=== PATIENT | female | born 1965 | race Caucasian/White ===

== ENCOUNTER → 2023-08-14 18:03 | Outpatient (REF) | payer OTHER, SELFPAY | LOC: PAVMRI 18:03 | PROVIDERS: ATTENDING PHYSICIAN Physician Assistant Surgical; FAMILY PHYSICIAN Internal Medicine; REFERRING PHYSICIAN Internal Medicine | DX: M54.50 Low back pain, unspecified (principal); M54.16 Radiculopathy, lumbar region; M51.36 Other intervertebral disc degeneration, lumbar region | CPT/HCPCS: 72148 ==

== ENCOUNTER 2024-01-18 06:25 | Inpatient (IN) | payer OTHER, SELFPAY ==
[2024-01-18] VITALS (12 sets, daily range): BP systolic 104–165; BP diastolic 67–92; BMI 21.7
[2024-01-18 04:07] LABS: % Basophils 0.4 % (0-2); % Eosinophils 0.9 % (0-6); % Immature Granulocytes 0.2 % (0-0.5); % Lymphocytes 28.7 % (20.5-51.1); % Monocytes 7.5 % (1.7-9.3); % Neutrophils 62.3 % (42.2-75.2); Absolute Eosinophils 0.1 10^3/uL (0-0.7); Absolute Lymphocytes 2.4 10^3/uL (1.2-3.4); Absolute Monocytes 0.6 10^3/uL (0.1-0.6); Absolute Neutrophils 5.3 10^3/uL (1.4-6.5); Hematocrit 35.4 % (37.0-47.0); Hemoglobin 12.7 g/dL (12.0-16.0); Mean Corp Hgb Conc. 35.9 g/dL (33.0-37.0); Mean Corpuscular Hgb 31.1 pg (27.0-31.0); Mean Corpuscular Volume 86.8 fL (81.0-99.0); Mean Platelet Volume 8.1 fL (7.4-10.4); Nucleated Red Blood Cells % 0 %; Platelet Count 240 10^3/uL (130-400); Red Blood Cell Count 4.08 10^6/uL (4.20-5.40); Red Cell Dist. Width 12.3 % (11.5-14.5); White Blood Cell Count 8.5 10^3/uL (4.8-10.8)
--- NOTE | 2024-01-18 04:15 | ED.GENMED ---
History of Present Illness
<ALEE Horton - Last Filed: 01/18/24 06:11>
General
Chief Complaint: Abdominal Pain
Source: patient
Exam Limitations: none
Time Seen by Provider: 01/18/24 04:15
Nursing documentation reviewed up to this point in time: agreed with
History of Present Illness
History of Present Illness:
58 year old female presents for evaluation of lower abdominal/suprapubic pain. She states the pain began at approximately 23:00 while lying in bed. Pt placed a heating pad on her lower abdomen for approximately two hours with no symptom relief. She
also noticed a bulge in her right groin during this time with associated sensation of pressure per pt. She has not attempted to reduce it. Sitting upright and standing worsen the pain/pressure. Pt has not taken any medications for her sx. She has a
history of congenital hernias, but has not experienced a hernia since. Pt denies experiencing similar sx in the past. Pt denies N/V, fever, chills, fatigue, diarrhea, constipation, dysuria, hematuria, CP, and SOB. She denies ETOH, tobacco, and
illicit drug use.
Past History
<ALEE Horton - Last Filed: 01/18/24 06:11>
Past History
ED Past Medical History: Asthma and Other (Occasional migraines)
ED Past Surgical History: Orthopedic (2009 anterior cervical laminectomy) and Tonsilectomy
Social History
Tobacco: Non-smoker
Alcohol: None
Drug: None
Personal:
Living: with family
Employment: Employed
Family History
Family History: Other (Noncontributory)
Review of Systems
<ALEE Horton - Last Filed: 01/18/24 06:11>
Review of Systems
Allergies reviewed?: Yes
Constitutional: Reports no symptoms
EENT: Reports no symptoms
Respiratory: Reports no symptoms
Cardiac: Reports no symptoms
ABD/GI: Reports abdominal pain (lower abdominal/suprapubic pain )
: Reports other (Right groin pain/pressure worsened by sitting upright and standing )
Musculoskeletal: Reports no symptoms
Skin: Reports no symptoms
Neurological: Reports no symptoms
Endocrine: Reports no symptoms
Hematologic/Lymphatic: Reports no symptoms
Psychiatric: Reports no symptoms
Phy Exam
<ALEE Horton - Last Filed: 01/18/24 06:11>
General Physical Exam
General Presentation: well appearing
General age: appears stated age
General Skin: warm
General Habitus: normal
General Mental: alert
General Hydration: appears well hydrated
Cardiovascular Exam
Cardiovascular Exam: regular rate/rhythm
Pulmonary Exam
Pulmonary Exam: lungs clear and no respiratory distress
Gastrointestinal Exam
Gastrointestinal Exam: normal bowel sounds, no pulsatile mass, non distended and other (right-sided irreducible inguinal hernia )
Neurological Exam
Neurological Exam: alert and oriented x3
Course
<ALEE Horton - Last Filed: 01/18/24 06:11>
Orders/Labs/Results
Orders:
Orders
01/18/24 03:37
IV Insert/Care/Rem.- Treatment PRN
Urinalysis Reflex To Culture Urgent
Date Specimen was Collected: 01/18/24
Time Specimen was Collected: 03:38
01/18/24 03:58
Complete Blood Count/With Diff Urgent
Comprehensive Metabolic Panel Urgent
Lactate Level [Lactic Acid] Urgent
Comment: .
Lipase Urgent
01/18/24 04:15
Iohexol [Omnipaque] See Protocol PO NOW STA
01/18/24 04:48
CT Abd/pelvis W Iv Cont Urgent
Comment:
Reason For Exam: rlowe inguinal pain, lower bad pain
01/18/24 04:54
HYDROmorphone [Dilaudid] 0.5 mg IV NOW STA
Ondansetron Injectable [Zofran] 4 mg IV NOW STA
Abnormal Lab Results
01/18/24
03:58
RBC 4.08 L 10^6/uL
(4.20-5.40)
Hct 35.4 L %
(37.0-47.0)
MCH 31.1 H pg
(27.0-31.0)
BUN 22 H mg/dl
(7-17)
Glucose 120 H mg/dl
(70-99)
01/18/24 03:58
01/18/24 03:58
Vital Signs
Initial and Last Documented VS:
Initial Vital Signs
Temp Pulse Resp BP Pulse Ox
97.9 F 93 20 128/86 98
01/18/24 03:21 01/18/24 03:21 01/18/24 03:21 01/18/24 03:21 01/18/24 03:21
Last Documented Vital Signs
Temp Pulse Resp BP Pulse Ox
97.9 F 83 15 158/83 97
01/18/24 03:21 01/18/24 05:30 01/18/24 05:30 01/18/24 05:11 01/18/24 05:36
<Theodore Child DO - Last Filed: 01/18/24 05:59>
Orders/Labs/Results
Orders:
Orders
01/18/24 03:37
IV Insert/Care/Rem.- Treatment PRN
Urinalysis Reflex To Culture Urgent
Date Specimen was Collected: 01/18/24
Time Specimen was Collected: 03:38
01/18/24 03:58
Complete Blood Count/With Diff Urgent
Comprehensive Metabolic Panel Urgent
Lactate Level [Lactic Acid] Urgent
Comment: .
Lipase Urgent
01/18/24 04:15
Iohexol [Omnipaque] See Protocol PO NOW STA
01/18/24 04:48
CT Abd/pelvis W Iv Cont Urgent
Comment:
Reason For Exam: rlowe inguinal pain, lower bad pain
01/18/24 04:54
HYDROmorphone [Dilaudid] 0.5 mg IV NOW STA
Ondansetron Injectable [Zofran] 4 mg IV NOW STA
Abnormal Lab Results
01/18/24
03:58
RBC 4.08 L 10^6/uL
(4.20-5.40)
Hct 35.4 L %
(37.0-47.0)
MCH 31.1 H pg
(27.0-31.0)
BUN 22 H mg/dl
(7-17)
Glucose 120 H mg/dl
(70-99)
01/18/24 03:58
01/18/24 03:58
Vital Signs
Initial and Last Documented VS:
Initial Vital Signs
Temp Pulse Resp BP Pulse Ox
97.9 F 93 20 128/86 98
01/18/24 03:21 01/18/24 03:21 01/18/24 03:21 01/18/24 03:21 01/18/24 03:21
Last Documented Vital Signs
Temp Pulse Resp BP Pulse Ox
97.9 F 83 15 158/83 97
01/18/24 03:21 01/18/24 05:30 01/18/24 05:30 01/18/24 05:11 01/18/24 05:36
Abenalt;ALEE Horton - Last Filed: 01/18/24 06:11>
MDM/Problems Addressed
Differential Diagnosis Includes:
incarcerated right inguinal hernia, abdominal pain, UTI
<Theodore Child DO - Last Filed: 01/18/24 05:59>
MDM/Problems Addressed
Differential Diagnosis Includes:
incarcerated right inguinal hernia , abdominal pain
<ALEE Horton - Last Filed: 01/18/24 06:11>
*Critical Care Note
Total Time (30-74mins, 75-104mins- exclusive of procedures): Not Applicable
<Theodore Child DO - Last Filed: 01/18/24 05:59>
*Radiology
Radiology exam reviewed: radiology read reviewed
<Theodore Child DO - Last Filed: 01/18/24 05:59>
Patient Management
Social determinants of health affecting care: Strong social support
<Theodore Child DO - Last Filed: 01/18/24 05:59>
Update Note
Update Note:
CT abdomen and pelvis with IV contrast
IMPRESSION:
A portion of inflamed cecum versus deformed appendix extends into the right inguinal canal suspicious for obstruction, with surrounding free fluid and inflammation, series 201, image 69. This could reflect incarceration/strangulation. Correlate
clinically for disability and recommend surgical consultation.
No free air. Liver is enlarged. No cholecystitis, pancreatitis, or obstructing renal stone. Spleen and adrenal glands are normal. Abdominal aorta is of normal caliber.
ED Attending Note
<ALEE Horton - Last Filed: 01/18/24 06:11>
-
Portions of this chart may have been created with voice recognition software.� Occasional wrong word or��sound alike� substitutions may have occurred due to the inherent limitations of voice recognition software.
<Theodore Child DO - Last Filed: 01/18/24 05:59>
ED Attending Note
Patient seen and examined by attending physician: Yes
I performed the substantive portion of visit, reviewed & personally made and approve the management plan that is documented in note by myself or ESA.: Yes
ED Attending Note:
Pleasant 58-year-old female who presents with generalized lower abdominal pain. She states that around 11 PM, after going to bed, she felt a bulge in her right inguinal region. As a child she had bilateral hernias Patient states that the bulge
was painful to the touch and she could not get it to go down. Patient states that she has had normal bowel movements. Denied fever or chills. Patient was seen in conjunction with the PA student. I have reviewed and agree with the history and
treatment plan presented. On my independent physical exam, patient is awake, alert, and oriented x3 moderate acute distress. Heart is regular rate and rhythm. Lungs are clear to auscultation bilaterally without wheezes rales or rhonchi. Abdomen
is soft. In the inguinal region there is a bulge, consistent with a right inguinal hernia. Several attempts to reduce this were unsuccessful.
01/18/2024 0548 AM 'discussed CT scan findings with Dr. Vergara via [place] text.
Discharge Plan
Departure
Patient Disposition: Admit
Date of Disposition: 01/18/24
Time of Disposition: 05:57
Admit to: Telemetry
Presentation/result/management discussed w/ accepting MD/DO: Hospitalist
Condition: Good
Discharge Problem:
Incarcerated hernia, Abdominal pain
Prescriptions:
No Action
Adderall
1 tab PO BID
Proventil
2 inh inhalation Q4H PRN (Reason: SOB)
Singulair
10 mg PO DAILY
Wellbutrin XL
1 tab PO DAILY
Rx Instructions:
unsure of dose
Zoloft
150 mg PO DAILY
albuterol
1 dose inhalation Q4H PRN (Reason: sob)
Rx Instructions:
unsure of dose
Referrals:
Dangelo Martinez MD [Family Provider] -
Interventions
Interventions:
*Risk Screen - Suicide Last Done: 01/18/24 03:21
*General Assessment Last Done: 01/18/24 03:21
*Neglect/Abuse Screening Last Done: 01/18/24 03:21
ED- Fall Risk Assessment Last Done: 01/18/24 03:21
*ED COVID-19 Vaccine History Last Done: 01/18/24 03:21
JQ-Ynkjjt-Ixqsuzsckv Assessment Last Done: 01/18/24 05:34
Discharge Date and Time
Print Language: PARAGUAYAN
[2024-01-18 04:32] LABS: Lactic Acid 1.2 mmol/L (0.7-2.0)
[2024-01-18 04:34] LABS: ALT (SGPT) 20 U/L (0-35); AST (SGOT) 25 U/L (14-36); Albumin 4.3 g/dl (3.5-5.0); Alkaline Phosphatase 77 U/L (38-126); Blood Urea Nitrogen 22 mg/dl (7-17); Calcium 9.8 mg/dl (8.4-10.2); Carbon Dioxide 23 mmol/L (22-30); Chloride 105 mmol/L (98-107); Estimated Creatinine Clearance 53 ml/min; Glucose 120 mg/dl (70-99); Lipase 248 U/L (23-300); Potassium 3.7 mmol/L (3.5-5.1); Sodium 138 mmol/L (135-145); Total Bilirubin 0.7 mg/dl (0.2-1.3); Total Protein 6.6 g/dl (6.3-8.2); eGFR > 60.00
[2024-01-18] MEDS: ZOFRAN 4 MG IV (05:08)
[2024-01-18] MEDS: DILAUDID 0.5 MG IV ×3 (05:08→22:12)
--- NOTE | 2024-01-18 06:11 | HPS.HSE ---
Family Physician
-
Family Physician: Dangelo Martinez
Chief Complaint
-
Abd Pain
History of Present Illness
Patient is a 58y F with PMH significant for anxiety / depression who presents to ED complaining of abdominal pain. Patient states that she started with crampy abdominal pain around 11 PM this evening. She applied a hating pad; however, her pain
persisted and progressed over the next 2 hours. Patient attempted to urinate in hopes to alleviate her discomfort and at this point she noted a visible bulge in the R inguinal area. This was tender to the touch. Patient denies any prior history
of similar symptoms. She has no nausea/vomiting, fevers / chills, etc.
Patient had bilateral inguinal herniorrhaphy in infancy.
Medical History
Past Medical History
Past Medical History: Reports Other
Additional Past Medical History:
Anxiety / Depression
ADHD
Exercise Induced Asthma
RLS
Past Surgical History: Reports Other
Additional Past Surgical History:
Cervical Discectomy / Fusion
Eye Surgery
Left Carpal Tunnel Release
Bilateral Inguinal Herniorrhaphies (infancy)
T&A
Social History
Tobacco: Non-smoker
Alcohol: None
Drug: None
Family History
Family History: Adopted
Allergies / Home Medications
Allergies reflects when Allergies were last updated in [facility].
Home Medications with original date entered in [facility]
Allergy/Medication List:
Allergies
Allergy/AdvReac Type Severity Reaction Status Date / Time
penicillin V [Penicillin V] Allergy Unknown Verified 01/18/24 03:21
Sulfa (Sulfonamide Allergy Unknown Verified 01/18/24 03:21
Antibiotics)
[Sulfa (Sulfonamides)]
steroids Allergy cushings, Uncoded 01/18/24 03:21
throat
swelling
Home Medications
Adderall 1 tab PO BID 01/18/24
Proventil 2 inh inhalation Q4H PRN SOB 01/18/24
Singulair 10 mg PO DAILY 01/18/24
Wellbutrin XL 1 tab PO DAILY 01/18/24
Zoloft 150 mg PO DAILY 01/18/24
albuterol 1 dose inhalation Q4H PRN sob 01/18/24
Review of Systems
-
History Source: Patient
A 12 point ROS was completed and negative except as noted: Yes
Constitutional: Denies Fever or Chills
Respiratory: Denies Cough or Trouble Breathing
Cardiac: Denies Chest Pain or Palpitations
Abdomen/GI: Reports Abdominal Pain; Denies Nausea, Vomiting, Diarrhea, Constipated, Bloody Stools or Black Stools
: Denies Dysuria, Frequency or Flank Pain
Neurological: Denies Dizzy or Headache
Physical Exam
Vital Signs
Vital Signs
Temp Pulse Resp BP Pulse Ox
97.9 F 83 15 158/83 97
01/18/24 03:21 01/18/24 05:30 01/18/24 05:30 01/18/24 05:11 01/18/24 05:36
Physical Exam
General: Other (58y F in mild distress due to pain.)
HEENT: Moist mucous membranes and PERRLA
Respiratory: Clear; No Wheezes, Rales or Rhonchi
Cardiac: S1/S2 and Regular Rhythm; No Murmur
GI: Soft, Non Distended, Normal Bowel Sounds and Other (Visible prominence in R inguinal area. Pos tender. Unable to easily reduce.)
Musculoskeletal: No Clubbing, No Cyanosis and No Edema
Neuro: AO x 3
Laboratory Results
-
01/18/24 03:58
01/18/24 03:58
Laboratory Results
Lactic Acid Cancelled 01/18/24 09:00
Total Bilirubin 0.7 mg/dl (0.2-1.3) 01/18/24 03:58
AST 25 U/L (14-36) 01/18/24 03:58
ALT 20 U/L (0-35) 01/18/24 03:58
Alkaline Phosphatase 77 U/L (38-126) 01/18/24 03:58
Lipase 248 U/L (23-300) 01/18/24 03:58
Impression/Plan
-
A/P: Patient is a 58y F with PMH significant for anxiety / depression who presents to ED complaining of abdominal pain that started suddently this evening.
Right Inguinal Hernia +/- Incarceration
- Admit for further evaluation and treatment.
- Patient is fairly well-appearing, normal WBC, normal lactate levels.
- Supportive care including pain control, IVFs, etc.
- Surgery evaluation for reduction / possible intervention.
- NPO for now / hold PO meds.
- Follow for any new / worsening symptoms.
Anxiety / Depression
- Hold usual meds for now.
- Resume when able to take POs.
Exercise Induced Asthma
- No current wheezing / exacerbation.
- Albuterol PRN.
DVT Prophylaxis: SCDs
Code Status: Full
[2024-01-18 06:48] LABS: Urine Albumin Negative (Neg - Trace); Urine Bilirubin Negative (Negative); Urine Character Clear (Clear); Urine Color Yellow; Urine Glucose Negative (Negative); Urine Ketone Negative (Negative); Urine Leukocyte Negative (Negative); Urine Nitrite Negative (Negative); Urine Occult Blood Negative (Negative); Urine Specific Gravity 1.015 (<1.030); Urine Urobilinogen Negative (Neg - 1+)
--- NOTE | 2024-01-18 07:08 | CON.GS ---
Addendum entered and electronically signed by Ascencion Vergara MD 01/18/24 07:18:

Patient with PCN allergy, plan for Levo and Flagyl
Original Note:
Medical History
-
Chief Complaint: RIGHT groin pain
History of Present Illness:
Patient is a 58 yo F with a PMH of depression/anxiety, asthma, and s/p bilateral open inguinal herniorrhaphy as an who presents to the ER with less than 24 hours of crampy lower abdominal pain as well as a firm hard RIGHT groin bulge.
Jase states that yesterday evening she developed some crampy lower abdominal pain. Upon further evaluation of the area she identified a firm lump in her groin. Continued pain and discomfort prompted presentation to the ED. She denies any nausea
or vomiting. She does continue to pass flatus and move her bowels. No fevers or chills. She has no prior knowledge of an inguinal hernia.
Past Medical History
Past Medical History: Asthma and Psychiatric (Depression/anxiety)
Past Surgical History: Hernia Repair (Bl inguinal herniorrhaphy as a child)
Social History
Tobacco: Non-Smoker
Alcohol: None
Drug: None
Personal: Partner
Living: With Family
Family History
Family History: Reviewed & Not Pertinent
Allergies / Home Medications
Allergy/AdvReac Type Severity Reaction Status Date / Time
penicillin V [Penicillin V] Allergy Unknown Verified 01/18/24 03:21
Sulfa (Sulfonamide Allergy Unknown Verified 01/18/24 03:21
Antibiotics)
[Sulfa (Sulfonamides)]
steroids Allergy cushings, Uncoded 01/18/24 03:21
throat
swelling
�Medication �Instructions �Recorded �Confirmed �Type
Adderall 1 tab PO BID 01/18/24 01/18/24 History
Proventil 2 inh inhalation Q4H PRN SOB 01/18/24 01/18/24 History
Singulair 10 mg PO DAILY 01/18/24 01/18/24 History
Wellbutrin XL 1 tab PO DAILY 01/18/24 01/18/24 History
Zoloft 150 mg PO DAILY 01/18/24 01/18/24 History
albuterol 1 dose inhalation Q4H PRN sob 01/18/24 01/18/24 History
Review of Systems
-
A 10 point review of systems was completed, and was negative except as per HPI.
Physical Exam
Vital Signs
Temp Pulse Resp BP Pulse Ox
97.9 F 83 15 158/83 97
01/18/24 03:21 01/18/24 05:30 01/18/24 05:30 01/18/24 05:11 01/18/24 05:36
01/17/24 01/18/24 01/19/24
06:59 06:59 06:59
Actual Weight 53.8 kg
Body Mass Index (BMI) 21.7
Lab Results
01/18/24 03:58
01/18/24 03:58
WBC 8.5 10^3/uL (4.8-10.8) 01/18/24 03:58
Hgb 12.7 g/dL (12.0-16.0) 01/18/24 03:58
Hct 35.4 % (37.0-47.0) L 01/18/24 03:58
Plt Count 240 10^3/uL (130-400) 01/18/24 03:58
Abs Immat Gran (auto) 0.0 10^3/uL (0-0.05) 01/18/24 03:58
Neutrophils % 62.3 % (42.2-75.2) 01/18/24 03:58
Physical Exam
General: Well Developed, Well Nourished and No Apparent Distress
HEENT: Normocephalic and Anicteric
Respiratory: Non Labored Respirations
Cardiac: Regular Rhythm
GI: Soft, Non Tender and Non Distended
Genito-urinary: Inguinal Hernia (Firm small RIGHT groin hernia, no overlying skin changes, patient unable to tolerate attempted reduction, tender to palpation, incarcerated)
Skin: Warm and Dry
Neuro: Nonfocal/Grossly Intact
Data Reviewed
-
CT Scan: Image Personally Visualized and interpreted and Report Reviewed by me
Labs: Labs Reviewed by me
Assessment / Plan
-
Patient is a 58 yo F p/w incarcerated possibly strangulated RIGHT inguinal hernia
The natural history and pathophysiology of inguinal hernias was briefly discussed. CT scan imaging was reviewed. Unfortunately, patient is unable to tolerate further attempts at reduction. Given the incarcerated and potentially strangulated
nature of her hernia recommend urgent evaluation and possible repair.
Plan for a laparoscopic possible open RIGHT inguinal hernia repair, possible bowel resection, possible mesh. The procedure itself, as well as the risks, benefits, and alternatives was discussed. Specifically, we discussed the risks of bleeding,
infection, injury to surrounding structures (bowel, nerves), anastomotic leak, need for delayed hernia repair, recurrence, and general anesthetic complications. Typical postprocedural recovery including pain management, length of stay in hospital,
and the need for 4 weeks no heavy lifting or strenuous activities was discussed. All questions answered. Consent signed.
-- Laparoscopic possible open RIGHT inguinal hernia repair, possible bowel resection, possible mesh
-- NPO, IVF
-- Abx: Zosyn
-- Pain control: Tylenol, IV Dilaudid PRN
-- Admitted to Medicine
--- NOTE | 2024-01-18 07:17 | W.SUR.PREOP ---
Pre-Operative Surgical Note
-
I have examined this patient prior to the performance of the scheduled procedure.
The patient's condition is unchanged from the time of the current History and
Physical and the patient is able to undergo the scheduled procedure.
[2024-01-18] MEDS: FLAGYL 500 MG IV (09:34)
[2024-01-18] MEDS: LEVAQUIN IV (09:38)
--- NOTE | 2024-01-18 10:19 | W.IMMPOSTOP ---
Surgical Immed Post Op Note
-
Primary Surgeon: Ursula
Assisting Surgeon: KARYNA De La O
Pre-op Diagnosis: Incarcerated groin hernia
Post-op Diagnosis: Strangulated femoral hernia
Procedure Performed: Laparoscopic partial cecectomy and primary repair of femoral hernia
Anesthesia Type: General
Specimen / Cultures:
1. Portion of cecum
Estimated Blood Loss: 3 cc
Complications: None
Operative Findings:
1. Strangulated femoral hernia containing knuckle of cecum
2. Laparoscopic reduction without violation or spillage, partial cecectomy performed with purple load stapler x2
3. Primary suture closure of femoral hernia sac with 0 PDS endoloop
[2024-01-18] MEDS: DILAUDID 0.25 MG IV (11:11)
[2024-01-18] MEDS: PROTONIX IV 40 MG IV (12:54)
[2024-01-18] MEDS: NORMOSOL-R 1000 IV ×4 (12:57→20:41)
[2024-01-18] MEDS: TYLENOL PO ×2 (13:02→20:42)
[2024-01-18] MEDS: TORADOL 10 MG IV (13:09)
[2024-01-18] MEDS: ADDERALL 10 MG PO (14:51)
[2024-01-18] MEDS: TYLENOL 650 MG PO (17:24)
[2024-01-18] MEDS: LOVENOX 40 MG SC (17:24)
[2024-01-18] MEDS: FLAGYL 500 MG 100 IV (17:24)
[2024-01-18] MEDS: SINGULAIR 10 MG PO (21:59)
[2024-01-18] MEDS: XANAX 0.5 MG PO (21:59)
[2024-01-18] MEDS: ZOLOFT 150 MG PO (22:04)
[2024-01-18] MEDS: WELLBUTRIN XL (24 hour extended release) 150 MG PO (22:04)
[2024-01-19] MEDS: FLAGYL 500 MG 100 IV ×3 (00:03→15:46)
[2024-01-19] MEDS: TYLENOL PO ×2 (00:04→03:49)
[2024-01-19 03:20] VITALS: BP 127/82
[2024-01-19] MEDS: DILAUDID 0.5 MG IV ×3 (03:41→20:22)
[2024-01-19 07:20] VITALS: BP 141/77
[2024-01-19] MEDS: NSS (PRESERVATIVE FREE) 10 ML IV (09:18)
[2024-01-19] MEDS: LEVAQUIN 100 IV (09:18)
[2024-01-19] MEDS: TYLENOL 650 MG PO ×4 (09:20→20:18)
[2024-01-19] MEDS: PROTONIX IV 40 MG IV (09:20)
[2024-01-19] MEDS: ADDERALL 10 MG PO ×2 (09:20→13:58)
[2024-01-19 09:58] LABS: Hematocrit 30.9 % (37.0-47.0); Hemoglobin 11.3 g/dL (12.0-16.0); Mean Corp Hgb Conc. 36.6 g/dL (33.0-37.0); Mean Corpuscular Hgb 31.3 pg (27.0-31.0); Mean Corpuscular Volume 85.6 fL (81.0-99.0); Mean Platelet Volume 8.2 fL (7.4-10.4); Platelet Count 185 10^3/uL (130-400); Red Blood Cell Count 3.61 10^6/uL (4.20-5.40); Red Cell Dist. Width 12.5 % (11.5-14.5); White Blood Cell Count 5.7 10^3/uL (4.8-10.8)
--- NOTE | 2024-01-19 09:58 | W.PN.HOSP.TC ---
Today's Communication/Plan
-
Advance diet per surgery
Assessment / Plan
Assessment / Plan
A/P: Patient is a 58y F with PMH significant for anxiety / depression who presents to ED complaining of abdominal pain that started suddently this evening.
Right Inguinal Hernia +/- Incarceration
s/p Laparoscopic partial cecectomy and primary repair of femoral hernia 01/17.
On liquid diet-advance per surgery
Continue with the pain regimen.
Anxiety / Depression
- cw home meds
Exercise Induced Asthma
- No current wheezing / exacerbation.
- Albuterol PRN.
DVT Prophylaxis: SCDs
Code Status: Full
Anticipated Discharge: 24 - 48 hours
Subjective/Interval History
-
Date of Service: January 19, 2024
No nausea or vomiting. Drinking a lot of liquids. Not much appetite. Passing gas. Still with abdominal pain which seems to radiate to low back.
No fever or chills.
Objective Data
-
Labs:
Laboratory Results
01/19/24
09:43
WBC Pending
Hgb Pending
Hct Pending
Plt Count Pending
Sodium Pending
Potassium Pending
Chloride Pending
Carbon Dioxide Pending
BUN Pending
Creatinine Pending
Glucose Pending
Calcium Pending
Vital Signs:
Vital Signs
Temp Pulse Resp BP Pulse Ox
97.9 F 76 16 141/77 97
01/19/24 07:20 01/19/24 07:20 01/19/24 07:20 01/19/24 07:20 01/19/24 07:20
I&O
01/18/24 01/19/24 01/20/24
06:59 06:59 06:59
Intake Total 3300 / 3300
Output Total 100 / 100
Balance 3200 / 3200
Review of Systems
-
Respiratory: Denies Trouble Breathing
Cardiac: Denies Chest Pain
Neuro: Denies Dizzy
Physical Exam
-
General: No Apparent Distress
HEENT: Moist Mucous Membranes
Respiratory: Clear to Auscultation
Cardiac: Regular Rhythm and S1/S2
GI: Soft, Nondistended, Normal Bowel Sounds, Tender (in general but no rebound or guarding) and Other (trocar sites without bleeding )
Neuro: AO x 3
Psych: Calm
Data Reviewed
-
Labs: Labs Reviewed by me
[2024-01-19] MEDS: NORMOSOL-R 1000 IV (10:03)
[2024-01-19 10:10] LABS: Blood Urea Nitrogen 7 mg/dl (7-17); Calcium 8.7 mg/dl (8.4-10.2); Carbon Dioxide 27 mmol/L (22-30); Chloride 107 mmol/L (98-107); Estimated Creatinine Clearance 80 ml/min; Glucose 84 mg/dl (70-99); Potassium 3.9 mmol/L (3.5-5.1); Sodium 138 mmol/L (135-145); eGFR > 60.00
--- NOTE | 2024-01-19 11:04 | W.PN.GS2 ---
Today's Communication / Plan
-
*
Assessment / Plan
-
ASSESSMENT:
58 yo Female POD#1 status post - LAP-Partial Cecectomy and Primary repair of femoral hernia for strangulated femoral hernia
PLAN:
Multimodal Pain Control analgesia
Advance to clear liquids diet / Soft diet PM today if tolerating well
D/C Hopkins Catheter
OK for D/C from surgical perspective , pending tolerance of diet intake
Subjective Data
-
Date of Service: January 19, 2024
Pt seen and examine this morning.
Pt stated she began experiencing Lower Abdominal pain last night around mid-night/Scaled as 910
Continues to be in Pain 03/18 this morning
Denies any Nausea or vomiting
Passing flatus
+ abdominal movement at this time
Objective Data
-
Intake and Output
01/18/24 01/19/24 01/20/24
06:59 06:59 06:59
Intake Total 3300 / 3300
Output Total 100 / 100
Balance 3200 / 3200
Intake:
Oral fluids 1200 / 1200
IV fluids (Total) 1900 / 1900
IV piggybacks 200 / 200
Output:
Urine, Hopkins 100 / 100
Other:
Number of approximated MODERATE 2
amounts of urine
Vital Signs
Temp Pulse Resp BP Pulse Ox
36.6 C 76 16 141/77 97
01/19/24 07:20 01/19/24 07:20 01/19/24 07:20 01/19/24 07:20 01/19/24 07:20
Lab Results
01/19/24 09:43
01/19/24 09:43
Calcium 8.7 mg/dl (8.4-10.2) 01/19/24 09:43
Total Bilirubin 0.7 mg/dl (0.2-1.3) 01/18/24 03:58
AST 25 U/L (14-36) 01/18/24 03:58
ALT 20 U/L (0-35) 01/18/24 03:58
Alkaline Phosphatase 77 U/L (38-126) 01/18/24 03:58
Total Protein 6.6 g/dl (6.3-8.2) 01/18/24 03:58
Albumin 4.3 g/dl (3.5-5.0) 01/18/24 03:58
Physical Exam
-
VITALS:
Stable
PE:
AAOx3
Was noted to be mildly in Pain, but in NAD this morning
ABD:
Sof, non-distended
No Rebound, rigidity or guarding
Mild tenderness to palpation on LQ's Bilaterally
[2024-01-19 11:10] VITALS: BP 131/67
[2024-01-19] MEDS: TORADOL 10 MG IV (14:00)
[2024-01-19 15:33] VITALS: BP 134/78
--- NOTE | 2024-01-19 15:36 | W.PN.GS2 ---
Today's Communication / Plan
-
LRD
Assessment / Plan
-
ASSESSMENT:
71 yo Female POD#1 status post - LAP-Partial Cecectomy and Primary repair of femoral hernia for strangulated femoral hernia
PLAN:

Adv to LRD
PRN pain meds
Ambulate
DVT ppx
Dispo planning
Subjective Data
-
Date of Service: January 19, 2024
AFVSS, pain controlled, ambulating, voiding, passing flatus
Objective Data
-
Intake and Output
01/18/24 01/19/24 01/20/24
06:59 06:59 06:59
Intake Total 3300 / 3300
Output Total 100 / 100
Balance 3200 / 3200
Intake:
Oral fluids 1200 / 1200
IV fluids (Total) 1900 / 1900
IV piggybacks 200 / 200
Output:
Urine, Hopkins 100 / 100
Other:
Number of approximated MODERATE 2
amounts of urine
Vital Signs
Temp Pulse Resp BP Pulse Ox
98 F 80 16 131/67 96
01/19/24 11:10 01/19/24 11:10 01/19/24 11:10 01/19/24 11:10 01/19/24 11:10
Lab Results
01/19/24 09:43
01/19/24 09:43
Calcium 8.7 mg/dl (8.4-10.2) 01/19/24 09:43
Total Bilirubin 0.7 mg/dl (0.2-1.3) 01/18/24 03:58
AST 25 U/L (14-36) 01/18/24 03:58
ALT 20 U/L (0-35) 01/18/24 03:58
Alkaline Phosphatase 77 U/L (38-126) 01/18/24 03:58
Total Protein 6.6 g/dl (6.3-8.2) 01/18/24 03:58
Albumin 4.3 g/dl (3.5-5.0) 01/18/24 03:58
Physical Exam
-
Gen: NAD
Abd: soft, approp ttp, incisions cdi
: no groin swelling or bruising
--- NOTE | 2024-01-19 16:04 | CM ---
Initial assessment was completed with pt at bedside.
Pt is a 58yr old female admitted with Inguinal Hernia.
Pt lives with her and their 2 children at baseline in a 2 level home with 0 steps to enter.
Pt is indep, active, and working at baseline. Her family is currently in [place] but she would have supports thru friends if she were to dc home alone.
Pt has no DME/VN/SNF hx
PCP; Dangelo Martinez
Pharm; Kendall Dailey
PLAN; DC to home; possible VN needs
[2024-01-19] MEDS: LOVENOX 40 MG SC (16:49)
[2024-01-19] MEDS: NORMOSOL-R IV (18:32)
[2024-01-19 19:32] VITALS: BP 135/78
[2024-01-19] MEDS: ZOFRAN 4 MG IV (20:26)
[2024-01-19] MEDS: ZOLOFT 150 MG PO (22:39)
[2024-01-19] MEDS: WELLBUTRIN XL (24 hour extended release) 150 MG PO (22:40)
[2024-01-19] MEDS: SINGULAIR 10 MG PO (22:40)
[2024-01-19 23:07] VITALS: BP 149/81
[2024-01-20] MEDS: FLAGYL 500 MG 100 IV ×4 (01:00→23:36)
[2024-01-20] MEDS: TYLENOL 650 MG PO ×6 (01:01→20:28)
[2024-01-20] MEDS: DILAUDID 0.5 MG IV ×2 (02:06→04:07)
[2024-01-20 03:24] VITALS: BP 140/92
[2024-01-20] MEDS: ZOFRAN 4 MG IV (03:24)
[2024-01-20] MEDS: MYLICON 80 MG PO (04:55)
[2024-01-20 07:19] VITALS: BP 133/81
[2024-01-20] MEDS: LEVAQUIN 100 IV (08:29)
[2024-01-20] MEDS: PROTONIX IV 40 MG IV (08:29)
[2024-01-20] MEDS: NSS (PRESERVATIVE FREE) 10 ML IV (08:29)
[2024-01-20] MEDS: ADDERALL 10 MG PO ×2 (08:30→13:49)
[2024-01-20] MEDS: NSS 1000 IV ×2 (10:53→23:36)
[2024-01-20] MEDS: TORADOL 10 MG IV ×3 (11:06→23:36)
[2024-01-20 11:13] VITALS: BP 134/78
--- NOTE | 2024-01-20 12:01 | W.PN.HOSP.TC ---
Today's Communication/Plan
-
DC planning
Assessment / Plan
Assessment / Plan
A/P: Patient is a 58y F with PMH significant for anxiety / depression who presents to ED complaining of abdominal pain that started suddently this evening.
Right Inguinal Hernia +/- Incarceration
s/p Laparoscopic partial cecectomy and primary repair of femoral hernia 01/17.
On LRD
Continue with the pain regimen.
Anxiety / Depression
- cw home meds
Exercise Induced Asthma
- No current wheezing / exacerbation.
- Albuterol PRN.
DVT Prophylaxis: SCDs
Code Status: Full
DC home when ok from surgical standpoint
Anticipated Discharge: Today
Subjective/Interval History
-
Date of Service: January 20, 2024
Improving abdominal pain. Tolerating food.
Objective Data
-
Labs:
Laboratory Results
01/20/24
10:30
WBC Pending
Hgb Pending
Hct Pending
Plt Count Pending
Sodium Pending
Potassium Pending
Chloride Pending
Carbon Dioxide Pending
BUN Pending
Creatinine Pending
Glucose Pending
Calcium Pending
Vital Signs:
Vital Signs
Temp Pulse Resp BP Pulse Ox
97.9 F 72 17 134/78 95
01/20/24 11:13 01/20/24 11:13 01/20/24 11:13 01/20/24 11:13 01/20/24 11:13
I&O
01/19/24 01/20/24 01/21/24
06:59 06:59 06:59
Intake Total 3300 / 3300 2570 / 2570
Output Total 100 / 100
Balance 3200 / 3200 2570 / 2570
Review of Systems
-
Constitutional: Denies Fever
Respiratory: Denies Trouble Breathing
Cardiac: Denies Chest Pain or Palpitations
Neuro: Denies Dizzy
Physical Exam
-
General: No Apparent Distress
Respiratory: Non Labored Respirations; Negative Accessory Resp Muscle Use
Cardiac: Regular Rhythm and S1/S2
GI: Soft, Nondistended and Normal Bowel Sounds
Neuro: AO x 3
Data Reviewed
-
Labs: Labs Reviewed by me (pending)
--- NOTE | 2024-01-20 12:17 | W.PN.GS2 ---
Addendum entered and electronically signed by Fernando Gutierrez MD 01/20/24 12:43:
I saw and examined the patient.
The Fiber Optics Engineer's note was reviewed and I agree with the note.
Comment: Worse pain overnight and now with nausea. Denies vomiting. Exam approp. ttp mostly to LLQ (suspect msk from lap instruments). Will go back to [facility]D until nausea improves. Ambika toradol. Cont abx
Original Note:
Today's Communication / Plan
-
Clear liquids
Pain management
Assessment / Plan
-
ASSESSMENT:
58 yo Female POD#2 status post - LAP-Partial Cecectomy and Primary repair of femoral hernia for strangulated femoral hernia
AFVSS
Some nausea overnight, reports pain quite bothersome
PLAN:
Multimodal Pain Control analgesia
Back to clear liquids until nausea improves
Plan scheduled Toradol for better pain management. ?narcotics contributing to nausea. PO tylenol/tramadol prn
Hold on D/C today given symptoms of nausea with diet advancement. Will follow for interval improvement on new pain regimen.
Continue abx x4 days post operatively
VTE ppx with lovenox and scds
Subjective Data
-
Date of Service: January 20, 2024
Patient seen and examined at bedside with Dr. Gutierrez. Reports pain across the abdomen. Became nauseated overnight. Does not feel that the Dilaudid was helping her pain. ?nausea in the past with narcotics.
Objective Data
-
Intake and Output
01/19/24 01/20/24 01/21/24
06:59 06:59 06:59
Intake Total 3300 / 3300 2570 / 2570
Output Total 100 / 100
Balance 3200 / 3200 2570 / 2570
Intake:
Oral fluids 1200 / 1200 1020 / 1020
IV fluids (Total) 1900 / 1900 1250 / 1250
IV piggybacks 200 / 200 300 / 300
Output:
Urine, Hopkins 100 / 100
Other:
Number of approximated SMALL 1
amounts of urine
Number of approximated MODERATE 2 1
amounts of urine
Vital Signs
Temp Pulse Resp BP Pulse Ox
97.9 F 72 17 134/78 95
01/20/24 11:13 01/20/24 11:13 01/20/24 11:13 01/20/24 11:13 01/20/24 11:13
Calcium 8.7 mg/dl (8.4-10.2) 01/19/24 09:43
Total Bilirubin 0.7 mg/dl (0.2-1.3) 01/18/24 03:58
AST 25 U/L (14-36) 01/18/24 03:58
ALT 20 U/L (0-35) 01/18/24 03:58
Alkaline Phosphatase 77 U/L (38-126) 01/18/24 03:58
Total Protein 6.6 g/dl (6.3-8.2) 01/18/24 03:58
Albumin 4.3 g/dl (3.5-5.0) 01/18/24 03:58
Physical Exam
-
Gen: NAD, resting comfortably in bed
Abd: soft, ND, approp ttp, incisions cdi
: no groin swelling or bruising
[2024-01-20 12:45] LABS: Hematocrit 33.7 % (37.0-47.0); Hemoglobin 11.9 g/dL (12.0-16.0); Mean Corp Hgb Conc. 35.3 g/dL (33.0-37.0); Mean Corpuscular Hgb 31.2 pg (27.0-31.0); Mean Corpuscular Volume 88.2 fL (81.0-99.0); Mean Platelet Volume 8.1 fL (7.4-10.4); Platelet Count 195 10^3/uL (130-400); Red Blood Cell Count 3.82 10^6/uL (4.20-5.40); Red Cell Dist. Width 12.3 % (11.5-14.5); White Blood Cell Count 4.1 10^3/uL (4.8-10.8)
[2024-01-20 13:00] LABS: Blood Urea Nitrogen 9 mg/dl (7-17); Carbon Dioxide 29 mmol/L (22-30); Chloride 103 mmol/L (98-107); Estimated Creatinine Clearance 68 ml/min; Glucose 108 mg/dl (70-99); Potassium 3.8 mmol/L (3.5-5.1); Sodium 137 mmol/L (135-145); eGFR > 60.00
[2024-01-20 15:14] VITALS: BP 143/83
[2024-01-20] MEDS: LOVENOX 40 MG SC (17:50)
[2024-01-20] MEDS: SINGULAIR 10 MG PO (21:51)
[2024-01-20] MEDS: WELLBUTRIN XL (24 hour extended release) 150 MG PO (21:51)
[2024-01-20] MEDS: ZOLOFT 150 MG PO (21:52)
[2024-01-20 22:48] VITALS: BP 178/96
--- NOTE | 2024-01-20 23:23 | W.PN.GS2 ---
Addendum entered and electronically signed by Olaf Cruz MD 01/21/24 10:51:
I saw and examined the patient independently.
The resident's note was reviewed and I agree with the note, assessment and plan except where noted below.
Comment: 58-year-old female postoperative day 3 from laparoscopic partial cecectomy and primary pair of a femoral hernia. Doing well, expected postoperative course.
Low residue diet.
If she tolerates it well, anticipate discharge home later today with 1 day of additional antibiotics.
All questions answered, discharge instructions reviewed.
Patient follow-up with Dr. Vergara in 2 to 3 weeks.
Original Note:
Today's Communication / Plan
-
Post-Operative Instructions were discussed
Introduction of Low-Residue Diet and Pain management PRN were discussed
Indicated to F/U with Dr. Vergara, in 2-4 weeks in Outpt setting
Pt Questions and concerns were all answered
Assessment / Plan
-
ASSESSMENT:
58 yo Female POD#3 status post - LAP-Partial Cecectomy and Primary repair of femoral hernia for strangulated femoral hernia
PLAN:
OK for D/C today from General-Surgery perspective - Pt Nausea and Pain had both subsided at this time.
Slowly advance onto Low-Residue Diet/W. Small frequent meals as tolerated
Continue Multimodal Pain Control analgesia - W. OTC's PO Tylenol/NSAID's PRN at Home
Continue W. PO ABX at Home for 1-Day of Duration (Until POD#4)
Schedule Post-Operative F/U W. Dr. Vergara within 2-4 Weeks
D/C Lovenox / Continue to Ambulate
Time Spent
Total Time Spent with Patient (in minutes): 10
Subjective Data
-
Date of Service: January 21, 2024
Pt was seen and evaluated this morning with attending physician and ESA.
No O/N events
No complains this morning
Stated she is feeling better today
Denies any pain, N/V
+Flatus / -BM Overnight
Objective Data
-
Intake and Output
01/19/24 01/20/24 01/21/24
06:59 06:59 06:59
Intake Total 3300 / 3300 2570 / 2570 720 / 720
Output Total 100 / 100
Balance 3200 / 3200 2570 / 2570 720 / 720
Intake:
Oral fluids 1200 / 1200 1020 / 1020 720 / 720
IV fluids (Total) 1900 / 1900 1250 / 1250
IV piggybacks 200 / 200 300 / 300
Output:
Urine, Hopkins 100 / 100
Other:
Number of approximated SMALL 1
amounts of urine
Number of approximated MODERATE 2 1 3
amounts of urine
Vital Signs
Temp Pulse Resp BP Pulse Ox
36.6 C 71 18 178/96 96
01/20/24 22:48 01/20/24 22:48 01/20/24 22:48 01/20/24 22:48 01/20/24 22:48
Lab Results
01/20/24 12:01
01/20/24 12:01
Calcium 9.0 mg/dl (8.4-10.2) 01/20/24 12:01
Total Bilirubin 0.7 mg/dl (0.2-1.3) 01/18/24 03:58
AST 25 U/L (14-36) 01/18/24 03:58
ALT 20 U/L (0-35) 01/18/24 03:58
Alkaline Phosphatase 77 U/L (38-126) 01/18/24 03:58
Total Protein 6.6 g/dl (6.3-8.2) 01/18/24 03:58
Albumin 4.3 g/dl (3.5-5.0) 01/18/24 03:58
Physical Exam
-
VITALS: AF VSS this morning
PE:
GEN: AAOx3, In NAD
ABD: Soft, Non-Distended with mild-TTP and No Rebound, Rigidity or Guarding
Incisions sutures in place, No Erythema/No Drainage
[2024-01-20 23:30] VITALS: BP 146/87
[2024-01-20] MEDS: XANAX 0.5 MG PO (23:37)
[2024-01-21] MEDS: TYLENOL PO ×2 (00:03→04:32)
[2024-01-21] MEDS: TORADOL 10 MG IV ×2 (05:02→12:41)
[2024-01-21 08:17] VITALS: BP 147/86
[2024-01-21] MEDS: PROTONIX IV 40 MG IV (08:41)
[2024-01-21] MEDS: NSS (PRESERVATIVE FREE) 10 ML IV (08:41)
[2024-01-21] MEDS: ADDERALL 10 MG PO ×2 (08:41→13:36)
[2024-01-21] MEDS: TYLENOL 650 MG PO ×2 (08:41→12:42)
[2024-01-21] MEDS: FLAGYL 500 MG 100 IV ×2 (08:42→15:04)
[2024-01-21] MEDS: LEVAQUIN 100 IV (08:42)
[2024-01-21] MEDS: ULTRAM 50 MG PO (08:47)
--- NOTE | 2024-01-21 11:58 | W.DCSUMMARY ---
Discharge Summary
Discharge Data
Date of Admission: 01/18/24
Date of Discharge: 01/21/24
-
Pending Results: No
Hospital Course
Ms Laguna is a 58 yo female who presented with a strangulated right femoral hernia and was taken to the OR emergently for laparoscopic reduction with primary repair and partial cecectomy. She tolerated the procedure well. Diet was able to be advanced
slowly and well tolerated prior to discharge. She had good control of pain prior to going home. She was discharged to home with outpatient follow up in the coming weeks.
Discharge Plan
-
Patient Disposition: Home (Routine Discharge)
Discharge Diagnosis/Procedures: Strangulated femoral hernia s/p partial cecectomy and primary repair of femoral hernia
Condition: Fair
Diet: Low Fiber
Activity: No strenuous activity
Additional Activity: Do not lift more than 15-20lbs for the next 4-6 weeks
Driving Restrictions: Wait until comfortable twisting/off narcotics
Bathing Restrictions: OK to Shower
Wound Care: Place ice packs on your groin for 20min at a time to reduce swelling. Ok to shower and wash your incisions gently with soap and water. Avoid scrubbing or picking off the glue allow it to flake off on it's own in 2-3 weeks.
Activity Restrictions/Additional Instructions:
Call your surgeon if you have nausea with vomiting, worsening pain or a fever >100.5
Referrals:
Ascencion Vergara MD [Active] - in two to three weeks
Dangelo Martinez MD [Family Provider] -
Prescriptions:
New
levofloxacin 500 mg tablet
500 mg PO DAILY Qty: 1 0RF
Rx Instructions:
Take on 01/22/24
metronidazole 500 mg tablet
500 mg PO Q8H 1 Days Qty: 4 0RF
tramadol 50 mg tablet
25 - 50 mg PO Q6HPRN PRN (Reason: severe pain/breakthrough pain) Qty: 10 0RF
Continued
Adderall
1 tab PO BID
Proventil
2 inh inhalation Q4H PRN (Reason: SOB)
Singulair
10 mg PO DAILY
Wellbutrin XL
1 tab PO DAILY
Rx Instructions:
unsure of dose
Zoloft
150 mg PO DAILY
albuterol
1 dose inhalation Q4H PRN (Reason: sob)
Rx Instructions:
unsure of dose
Discharge Orders:
Discharge Patient (As Directed); Ordered 01/21/24
Ordered By: Olga Dumas
Discharge Date and Time
Print Language: UGANDAN
[2024-01-21] MEDS: NSS IV (12:41)
--- NOTE | 2024-01-21 13:10 | CM ---
Patient who is s/p laparoscopic partial cecectomy and primary pair femoral hernia.
Spoke with patient who was preparing for discharge. The patient states she feels ready for d/c today and was told she could go home if she tolerates lunch. She prefers to go home as she is not sleeping well here and wants to be in her own bed.
Patient declined offer for VN. Patient states her is out of town in [place] so her neighbor/friend who is a nurse will provide transport home.
No CM d/c needs identified.
Plan home today.
[2024-01-21 15:22] VITALS: BP 161/84
== END 2024-01-21 17:33 | disposition home or self-care (01) | DRG 331 ==
LOC: 2 SOUTH 06:25
PROVIDERS: Registered Nurse; ADMITTING PHYSICIAN Hospitalist; ATTENDING PHYSICIAN Surgery; EMERGENCY PHYSICIAN Student in an Organized Health Care Education/Training Program; FAMILY PHYSICIAN Internal Medicine
PROC: 0DBH4ZZ Excision of Cecum, Percutaneous Endoscopic Approach (ICD-10-PCS; 2024-01-18)
PROC: 0WQF4ZZ Repair Abdominal Wall, Percutaneous Endoscopic Approach (ICD-10-PCS; 2024-01-18)
DX: K40.30 Unilateral inguinal hernia, with obstruction, without gangrene, not specified as recurrent (principal); F41.9 Anxiety disorder, unspecified; F32.A Depression, unspecified; J45.990 Exercise induced bronchospasm
CPT/HCPCS: 88302; 88304; 74177; 80048; 80053; 81003; 83605; 83690; 85025; 85027; 96374; 96375; 99285; Q9967

== ENCOUNTER 2025-05-25 20:57 | Emergency (ER) | payer OTHER, SELFPAY ==
[2025-05-25 21:02] VITALS: BP 176/100
[2025-05-25 21:24] VITALS: BP 184/88
[2025-05-25 21:25] LABS: Hematocrit 39.2 % (37.0-47.0); Hemoglobin 12.9 g/dL (12.0-16.0); Mean Corp Hgb Conc. 32.9 g/dL (33.0-37.0); Mean Corpuscular Volume 93.3 fL (81.0-99.0); Nucleated Red Blood Cells % 0 %; Platelet Count 224 10^3/uL (130-400); Red Cell Dist. Width 12.3 % (11.5-14.5)
[2025-05-25 21:37] LABS: ALT (SGPT) 26 U/L (0-35); AST (SGOT) 27 U/L (14-36); Albumin 4.4 g/dl (3.5-5.0); Alkaline Phosphatase 68 U/L (38-126); Blood Urea Nitrogen 25 mg/dl (7-17); Calcium 9.6 mg/dl (8.4-10.2); Carbon Dioxide 31 mmol/L (22-30); Chloride 103 mmol/L (98-107); Glucose 84 mg/dl (70-99); Potassium 4.0 mmol/L (3.5-5.1); Sodium 140 mmol/L (135-145); Total Protein 7.2 g/dl (6.3-8.2); eGFR > 60.00
[2025-05-25 21:50] LABS: Troponin I 0.019 ng/ml
[2025-05-25 22:00] VITALS: BP 163/86
[2025-05-25 22:17] VITALS: BMI 24.3
--- NOTE | 2025-05-25 22:26 | ED.GENMED ---
History of Present Illness
General
Chief Complaint: Cardiac Symptoms
Time Seen by Provider: 05/25/25 21:21
History of Present Illness
History of Present Illness:
59-year-old female with history of asthma presents to the emergency department for evaluation of chest congestion, dry cough, and chest pressure intermittently for the past week. She reports that she has had some palpitations over the past few days
as well. Went to urgent care for the symptoms earlier tonight and had an EKG that was concerning for possible atrial arrhythmia and was sent to the emergency department. I did review this EKG personally on arrival as it was provided by the patient
and it shows a sinus tachycardia with some artifact in lead V3 but no clear evidence for atrial flutter. Patient denies any overt chest pain or leg swelling.
Past History
Past History
ED Past Medical History: Asthma and Other (Occasional migraines)
ED Past Surgical History: Orthopedic (2009 anterior cervical laminectomy) and Tonsilectomy
Social History
Tobacco: Non-smoker
Alcohol: None
Drug: None
Personal:
Living: with family
Employment: Employed
Family History
Family History: Other (Noncontributory)
Review of Systems
Review of Systems
Allergies reviewed?: Yes
All Other Systems: ROS reviewed and negative except as documented in HPI and ROS
Phy Exam
Physical Exam
Physical Exam:
GEN: Well appearing, NAD, WDWN
HEENT: Oral mucosa moist, no scleral icterus
Cardiac: Regular rate and rhythm, no murmurs
Lung: No respiratory distress, no tachypnea, lungs clear to auscultation bilaterally
MSK: No gross deformity or injuries
Skin: Good color, no pallor or jaundice, no rashes
Neuro: AO x3, moves all extremities freely
Psych: Calm, cooperative
Course
Orders/Labs/Results
Orders:
Orders
05/25/25 20:58
EKG [Electrocardiogram (*1)] Urgent
Reason for Study: Atrial Flutter
EKG- Treatment ONCE
05/25/25 21:10
Cardiac Monitoring- Treatment ONCE
IV Insert/Care/Rem.- Treatment PRN
05/25/25 21:14
Complete Blood Count/With Diff Urgent
Comprehensive Metabolic Panel Urgent
Troponin I Urgent
05/25/25 21:35
CR Chest - 2 Views Urgent
Comment:
Reason For Exam: cough,SOB
05/25/25 22:26
Azithromycin [Zithromax] 500 mg PO NOW STA
Abnormal Lab Results
05/25/25
21:14
MCHC 32.9 L g/dL
(33.0-37.0)
Carbon Dioxide 31 H mmol/L
(22-30)
BUN 25 H mg/dl
(7-17)
05/25/25 21:14
05/25/25 21:14
Vital Signs
Initial and Last Documented VS:
Initial Vital Signs
Temp Pulse Resp BP Pulse Ox
97.9 F 94 20 176/100 98
05/25/25 21:02 05/25/25 21:02 05/25/25 21:02 05/25/25 21:02 05/25/25 21:02
Last Documented Vital Signs
Temp Pulse Resp BP Pulse Ox
97.9 F 94 15 163/86 96
05/25/25 21:02 05/25/25 22:17 05/25/25 22:17 05/25/25 22:00 05/25/25 22:26
MDM/Problems Addressed
MDM/Problems Addressed:
Patient's symptoms are more infectious in nature as opposed to cardio ischemic or arrhythmia in nature. She has no evidence of atrial flutter on telemetry or EKG here. Chest x-ray shows no evidence for pneumonia. Given the persistent dry cough we
will trial a course of azithromycin for potential bacterial bronchitis
Comment
Comment:
EKG independently interpreted by me shows a sinus tachycardia with no ST changes concerning for ischemia
*Pulse Oximetry
SaO2: 96
Patient hypoxic: no
*Critical Care Note
Total Time (30-74mins, 75-104mins- exclusive of procedures): Not Applicable
ED Attending Note
-
Portions of this chart may have been created with voice recognition software.� Occasional wrong word or��sound alike� substitutions may have occurred due to the inherent limitations of voice recognition software.
Discharge Plan
Departure
Patient Disposition: Home (Routine Discharge)
Date of Disposition: 05/25/25
Time of Disposition: 22:26
Patient with high blood pressure during this ER visit?: No
Discharge Problem:
Bronchitis
Instructions: Bronchitis in adults - ED (DC)
Prescriptions:
New
azithromycin [Zithromax] 250 mg tablet
250 mg PO DAILY Qty: 4 0RF
albuterol sulfate 2.5 mg /3 mL (0.083 %) solution for nebulization
2.5 mg inhalation Q6H Qty: 90 0RF
No Action
Adderall
1 tab PO BID
Proventil
2 inh inhalation Q4H PRN (Reason: SOB)
Singulair
10 mg PO DAILY
Wellbutrin XL
1 tab PO DAILY
Rx Instructions:
unsure of dose
Zoloft
150 mg PO DAILY
albuterol
1 dose inhalation Q4H PRN (Reason: sob)
Rx Instructions:
unsure of dose
levofloxacin 500 mg tablet
500 mg PO DAILY Qty: 1 0RF
Rx Instructions:
Take on 01/22/24
metronidazole 500 mg tablet
500 mg PO Q8H 1 Days Qty: 4 0RF
tramadol 50 mg tablet
25 - 50 mg PO Q6HPRN PRN (Reason: severe pain/breakthrough pain) Qty: 10 0RF
ondansetron 4 mg tablet,disintegrating
4 mg PO Q8HPRN PRN (Reason: nausea/vomiting) Qty: 10 0RF
acetaminophen [acetaminophen] 325 mg tablet
650 mg PO Q4HPRN PRN (Reason: mild pain) Qty: 1 0RF
ibuprofen 200 mg tablet
400 - 600 mg PO Q6HPRN PRN (Reason: moderate pain) Qty: 1 0RF
Referrals:
Dangelo Martinez MD [Family Provider, Family Practice]
Interventions
Interventions:
*Risk Screen - Suicide Last Done: 05/25/25 21:02
*General Assessment Last Done: 05/25/25 21:35
*Neglect/Abuse Screening Last Done: 05/25/25 21:02
*ED- Fall Risk Assessment Last Done: 05/25/25 21:35
*ED COVID-19 Vaccine History Last Done: 05/25/25 22:10
*ED Influenza Vaccine History Last Done: 05/25/25 22:10
*Nursing Disposition Last Done: 05/25/25 22:43
ED- Cardiac Assessment Last Done: 05/25/25 22:10
ED- Pulmonary Assessment Last Done: 05/25/25 21:34
Discharge Date and Time
Discharge Date/Time: 05/25/25 22:43
Print Language: SWISS
[2025-05-25] MEDS: ZITHROMAX 500 MG PO (22:37)
== END 2025-05-25 22:43 | disposition home or self-care (01) ==
LOC: EMR 20:57
PROVIDERS: Emergency Medicine; EMERGENCY PHYSICIAN Emergency Medicine; FAMILY PHYSICIAN Internal Medicine
DX: J40 Bronchitis, not specified as acute or chronic (principal)
CPT/HCPCS: 99283; 71046; 80053; 84484; 85025; 93005